=== PATIENT | female | born 1980 | race African-American/Black ===

== ENCOUNTER 2017-03-15 11:05 | Emergency (ER) | payer OTHER ==
[~2017-03-15 11:05] MED LIST: ADVAIR INH; ALBUTEROL17 GM INH; ALPRAZOLAM PO; AZITHROMYCIN250 MG PO; BENZONATATE PO; BP MED; BP MED?; CIPRO PO; FIORICET 50-321 EACH PO; FLEXERIL10 MG PO; FLONASE 0.05% N16 G1; HYDROCODONE-APA1 T30 PO; LEVAQUIN PO; MEDROL PO; MUCINEX DM1 TAB.SR . PO; NEXIUM PO; ORUDIS75 M1 PO; PHENERGAN W/CO120 ML PO; PREDNISONE PO; PROMETHAZINE-D240 ML PO; SINGULAIR PO; VOLMAX4 MG PO; ZITHROMAX PO; ZOFRAN ODT4 MG PO
[2017-03-15 11:45] LABS: BASOPHIL% 0.9 % (0-2.5); EOSINOPHIL# 0.1 X10e3 (0-0.7); EOSINOPHIL% 1.5 % (0.0-7.0); HEMATOCRIT 40.1 % (35.0-45.0); HEMOGLOBIN 13.2 gm/dL (12.0-16.0); LYMPHOCYTE# 1.6 X10e3 (1.0-3.5); LYMPHOCYTE% 35.4 % (17.0-45.0); MEAN CELL VOLUME 84.3 FL (83-96); MEAN CORPUSCULAR HEMOGLOBIN 27.7 PG (28-34); MEAN CORPUSCULAR HGB CONC 32.9 g/dL (30-36); MEAN PLATELET VOLUME 8.8 FL (6.5-11.5); MONOCYTE# 0.5 X10e3 (0-1.0); MONOCYTE% 10.8 % (3.0-12.0); NEUTROPHIL# 2.3 X10e3 (1.5-7.1); NEUTROPHIL% 51.4 % (40-75); PLATELET COUNT 247 X10e3 (140-420); RED BLOOD COUNT 4.76 X10e (3.90-5.30); RED CELL DISTRIBUTION WIDTH 14.6 % (11.0-15.5); WHITE BLOOD COUNT 4.4 X10e3 (4.0-10.5)
[2017-03-15 11:47] LABS: DIFF IND NO
[2017-03-15 11:55] LABS: URINE SOURCE CLEAN CATCH
[2017-03-15 12:00] LABS: URINE APPEARANCE CLEAR; URINE BILIRUBIN NEG (NEG); URINE BLOOD NEG (NEG); URINE COLOR YELLOW; URINE GLUCOSE NEG (NEG); URINE KETONE NEG (NEG); URINE LEUKOCYTE ESTERASE NEG (NEG); URINE NITRATE NEG (NEG); URINE PROTEIN NEG (NEG); URINE SPECIFIC GRAVITY 1.008 (1.003-1.035); URINE UROBILINOGEN 0.2 MG/DL (NEG)
[2017-03-15 12:04] LABS: CULTURE INDICATED? NO
[2017-03-15 12:10] LABS: BUN/CREATININE RATIO 14.28; CALCIUM SERUM 9.3 mg/dL (8.4-10.2); CREATININE SERUM 0.7 mg/dL (0.6-1.4); GLOM FILT RATE Estimated 130.1 mL/min (>60); POTASSIUM 3.2 mmol/L (3.5-5.1)
== END 2017-03-15 14:27 | disposition home or self-care (01) ==
LOC: CED 11:05
PROVIDERS: Emergency Medicine
DX: O20.9 Hemorrhage in early pregnancy, unspecified (principal); D25.9 Leiomyoma of uterus, unspecified; Z88.0 Allergy status to penicillin
CPT/HCPCS: 36415; 51701; 80048; 81003; 84702; 85025; 99283

== ENCOUNTER 2017-03-21 10:46 | Emergency (ER) | payer OTHER ==
--- NOTE | ~2017-03-21 | CR230 ---
[facility] A Service of [facility] & [facility] RADIOLOGY TEXT RESULTS PATIENT: RAFAEL BORREGO LOCATION: [facility] : 82 UNIT #: [id number] AGE: [address]: Juan Antonio Mcknight SEX: F ORDER DR: [id number] [facility] [address] [place], [place] [address] [id number] E MR#: [id number] Acc #: [id number] NAME: RAFAEL BORREGO : 1980 SEX: F STUDY DATE/TIME: 03/21/2017 12:46 UNIT: [facility] ROOM: STUDY DESCRIPTION: CR Shoulder Min 2 View Rt Attending Physician: Audrey Mcknight Ordering Physician: Audrey Mcknight Primary Care Physician: Mohit Bynum Aprn MEDICAL IMAGING REPORT This report is preliminary unless electronic signature is present EXAM Right shoulder. DATE OF EXAM 03/21/2017, 1246 hours. CLINICAL HISTORY 36-year-old woman who fell yesterday complaining of right shoulder pain and right knee pain since fall. COMPARISON Right shoulder, 03/04/2016. FINDINGS AP views in internal and external rotation and a scapula Y-view demonstrate no fracture, dislocation or degenerative change. IMPRESSION Normal right shoulder. Dictated by... Justine Tilley M.D. THIS IS AN ELECTRONICALLY VERIFIED REPORT Justine Tilley M.D. at 03/24/2017 9:00 AM URSULA/lani TD: 03/21/2017 16:08 JOB #: [id number] MEDICAL IMAGING REPORT Page 1 of 1 COPY
--- NOTE | ~2017-03-21 | CR170 ---
[facility] A Service of [facility] & [facility] RADIOLOGY TEXT RESULTS PATIENT: RAFAEL BORREGO LOCATION: [facility] : 82 UNIT #: [id number] AGE: [address]: Juan Antonio Mcknight SEX: F ORDER DR: [id number] [facility] [address] [place], [place] [address] [id number] E MR#: [id number] Acc #: [id number] NAME: RAFAEL BORREGO : 1980 SEX: F STUDY DATE/TIME: 03/21/2017 12:45 UNIT: [facility] ROOM: STUDY DESCRIPTION: CR Knee 2 Views Rt Attending Physician: Juan Antonio Mcknight Ordering Physician: Juan Antonio Mcknight Primary Care Physician: Mohit Bynum Aprn MEDICAL IMAGING REPORT This report is preliminary unless electronic signature is present EXAM Right knee 2 view 03/21/2017 COMPARISON Prior study dated 03/04/2016 HISTORY Pain after fall yesterday. FINDINGS Degenerative changes without fracture or dislocation or evidence of joint effusion. Dictated by... Maikel Lara M.D. THIS IS AN ELECTRONICALLY VERIFIED REPORT Maikel Lara M.D. at 03/26/2017 1:24 PM NAOMI/eladio TD: 03/21/2017 15:52 JOB #: [id number] MEDICAL IMAGING REPORT Page 1 of 1 COPY
[2017-03-21 13:10] LABS: URINE SOURCE CLEAN CATCH
[2017-03-21 13:20] LABS: CULTURE INDICATED? YES; URINE APPEARANCE TURBID; URINE BILIRUBIN NEG (NEG); URINE BLOOD NEG (NEG); URINE COLOR YELLOW; URINE GLUCOSE NEG (NEG); URINE KETONE NEG (NEG); URINE LEUKOCYTE ESTERASE TRACE (NEG); URINE NITRATE NEG (NEG); URINE PH 7.5 (5-8); URINE PROTEIN NEG (NEG); URINE SPECIFIC GRAVITY 1.024 (1.003-1.035); URINE SQUAMOUS EPITHELIAL CELL MANY /[HPF]
[2017-03-21 13:31] LABS: URINE MUCUS PRESENT
[2017-03-21 13:32] LABS: URBCS1 AUWI 0-2 /[HPF] (0-2); URINE BACTERIA AUWI 2+ (NEGATIVE)
== END 2017-03-21 14:07 | disposition home or self-care (01) ==
LOC: CFTX 10:46 → CED 10:46 → CFTX 13:06
PROVIDERS: Nurse Practitioner
DX: S39.012A Strain of muscle, fascia and tendon of lower back, initial encounter (principal); S40.011A Contusion of right shoulder, initial encounter; S80.01XA Contusion of right knee, initial encounter; I10 Essential (primary) hypertension; F41.9 Anxiety disorder, unspecified; J45.909 Unspecified asthma, uncomplicated; F17.200 Nicotine dependence, unspecified, uncomplicated; E87.6 Hypokalemia; W01.0XXA Fall on same level from slipping, tripping and stumbling without subsequent striking against object, initial encounter
CPT/HCPCS: 73030; 73560; 81003; 87086; 96372; 99284; J1885

== ENCOUNTER 2017-05-22 14:55 | Emergency (ER) | payer OTHER ==
--- NOTE | ~2017-05-22 | US85 ---
[facility] A Service of [facility] & [facility] RADIOLOGY TEXT RESULTS PATIENT: RAFAEL BORREGO LOCATION: [facility] : 81 UNIT #: [id number] AGE: [address]: Yanely Benson APRN SEX: F ORDER DR: [id number] [facility] [address] [place], [place] [address] [id number] E MR#: [id number] Acc #: [id number] NAME: RAFAEL BORREGO : 1980 SEX: F STUDY DATE/TIME: 05/22/2017 16:03 UNIT: [facility] ROOM: STUDY DESCRIPTION: [facility] Attending Physician: Yanely Benson A.P.R.N. Ordering Physician: [facility] Primary Care Physician: Mohit Bynum Aprn MEDICAL IMAGING REPORT This report is preliminary unless electronic signature is present EXAM Unilateral left lower extremity venous Doppler HISTORY Left leg pain and swelling for 3 days particularly in the calf and foot. TECHNIQUE Venous ultrasound examination of the left lower extremity was performed using grayscale, spectral Doppler and color flow Doppler imaging. FINDINGS The examination is negative. There is no evidence of left lower extremity deep venous thrombus from the groin to the lower calf. Visualized greater saphenous vein is also patent. IMPRESSION Negative examination. No evidence of left lower extremity deep venous thrombosis. Dictated by... Maikel Lara M.D. THIS IS AN ELECTRONICALLY VERIFIED REPORT Maikel Lara M.D. at 05/23/2017 4:10 PM Hemant TD: 05/22/2017 18:17 JOB #: [id number] MEDICAL IMAGING REPORT Page 1 of 1 COPY
--- NOTE | ~2017-05-22 | CR127 ---
[facility] A Service of [facility] & [facility] RADIOLOGY TEXT RESULTS PATIENT: RAFAEL BORREGO LOCATION: [facility] : 82 UNIT #: [id number] AGE: [address]: Yanely Benson APRN SEX: F ORDER DR: [id number] [facility] [address] [place], [place] [address] [id number] E MR#: [id number] Acc #: [id number] NAME: RAFAEL BORREGO : 1980 SEX: F STUDY DATE/TIME: 05/22/2017 15:52 UNIT: [facility] ROOM: STUDY DESCRIPTION: CR Foot Complete Min 3 View Rt Attending Physician: Yanely Benson A.P.R.N. Ordering Physician: Ed Kevin Fulton M.D. Primary Care Physician: Mohit Bynum Aprn MEDICAL IMAGING REPORT This report is preliminary unless electronic signature is present EXAM Right foot, 3 views. INDICATION Right foot pain and swelling since yesterday. COMPARISON No comparisons. FINDINGS There is no fracture or dislocation. Soft tissue structures are unremarkable. IMPRESSION Negative. Dictated by... Shashi Kimble M.D. THIS IS AN ELECTRONICALLY VERIFIED REPORT Shashi Kimble M.D. at 05/23/2017 7:12 AM PERCY/lani TD: 05/22/2017 18:11 JOB #: [id number] MEDICAL IMAGING REPORT Page 1 of 1 COPY
== END 2017-05-22 17:10 | disposition home or self-care (01) ==
LOC: CFTX 14:55 → CED 14:55 → CFTX 17:02
DX: S90.31XA Contusion of right foot, initial encounter (principal); R60.0 Localized edema; F17.210 Nicotine dependence, cigarettes, uncomplicated; J45.909 Unspecified asthma, uncomplicated; I10 Essential (primary) hypertension; Z88.0 Allergy status to penicillin; Z88.8 Allergy status to other drugs, medicaments and biological substances; X58.XXXA Exposure to other specified factors, initial encounter
CPT/HCPCS: 29405; 73630; 93971; 99283